=== PATIENT | male | born 1950 | race Caucasian/White ===

== ENCOUNTER 2017-03-19 10:50 | Emergency (ER) | payer BC, OTHER ==
--- NOTE | 2017-03-19 11:04 | PDOC ---
History of Present Illness - General Chief Complaint: Pain, Acute Stated Complaint: RIGHT RIB PAIN WITH BRUISING TO RIGHT BACK & ABD Time Seen by Provider: 03/19/17 11:01 - History of Present Illness Initial Comments: 03/21/17 08:07 Chief complaint: Pain right ribs History of present illness: Patient was playing tennis several days ago, collided with a pole, struck his right mid back. Since then, pain in the right lower posterior ribs, worse with inspiration. He has a small bruise on his right upper abdomen as well, but this was present before his injury. He is unsure of the etiology of this bruise Review of systems: Denies pain or injury to the head neck abdomen pelvis spine or extremities. Denies loss of consciousness. Denies any visual or focal neurologic symptoms, lightheadedness, dizziness, unsteadiness of gait. Past medical history: Patient states that he had one episode of atrial fibrillation approximately 25 years ago, was started on warfarin at that time, and although he has had no further episodes he is maintained on the warfarin by his physician. He is remiss about having his INR checked, which has not been done for "a long time" Elevated cholesterol. IBS with constipation. GERD. Sleep disorder. I blood pressure. Medications: Verapamil, atorvastatin, lamotrigine, Amatiza, Senokot, trazodone, warfarin, Protonix, and oxycodone. Social history: No tobacco alcohol or nonprescription drugs. Stable home and family. Active, plays tennis, and cares for self Family history: Reviewed and noncontributory Physical exam: Alert and oriented 3, well-developed well-nourished, no acute distress, cheerful and cooperative. Afebrile, vital signs normal Head atraumatic. PERRLA, fundi benign, ENT clear Neck supple without bruit mass or nodes. No tenderness or deformity of the cervical spine. Full range of motion without pain Chest clear to P&A. Full breath sounds throughout bilaterally. Mild splinting with deep inspiration due to pain in the right lower posterior rib cage. There is a large ecchymosis in this area without deformity or crepitus to palpation. CV S1 and S2 normal without murmur rub or gallop pulses full and symmetric no JVD or edema. Rate is regular Abdomen nondistended. Bowel sounds normal. Soft without masses tenderness organomegaly. There is a small 2 cm ecchymosis without swelling or induration over the right upper abdomen. No pelvic or spine deformity or point tenderness Neurological C2 to 12 intact. Strength is symmetric. No focal motor or sensory deficits. Gait stable and unimpaired. There is some difficulty arising from a lying position due to pain in the rib cage Impression: Chest contusion, rule out fracture of the ribs, rule out pulmonary contusion Plan: X-ray of the chest and abdomen, CBC, chemistries, urinalysis, and INR. Further treatment depending on results Past History - Past Medical History Allergies/Adverse Reactions: Allergies Allergy/AdvReac Type Severity Reaction Status Date / Time No Known Allergies Allergy Verified 03/19/17 11:02 Home Medications: Ambulatory Orders Pantoprazole Sodium [Protonix] 40 mg PO DAILY 12/14/12 Verapamil HCl [Verapamil Sr] 120 mg PO DAILY 12/14/12 Warfarin Na [Coumadin -] 12.5 mg PO DAILY 12/14/12 Alprazolam [Xanax] 1 mg PO QID PRN 03/19/17 Atorvastatin Ca [Lipitor] 20 mg PO HS 03/19/17 Lamotrigine 100 mg PO BID 03/19/17 Lubiprostone [Amitiza] 24 mcg PO BID 03/19/17 Sennosides [Senokot] 8.6 mg PO DAILY 03/19/17 Tramadol HCl 50 mg PO QID PRN #20 tablet MDD 4 03/19/17 Trazodone HCl 50 mg PO HS 03/19/17 Cardiac Disorders: Yes (A-FIB on Coumadin for 20years) - Psycho/Social/Smoking Cessation Hx Anxiety: No Suicidal Ideation: No Smoking Status: No Smoking History: Never smoked Number of Cigarettes Smoked Daily: 0 ED Treatment Course - LABORATORY CBC & Chemistry Diagram: 03/19/17 11:54 03/19/17 12:28 Medical Decision Making - Medical Decision Making 03/19/17 12:45 CBC reveals a normal white count, H&H, and platelets Chemistries show a potassium of 7.8, but blood is grossly hemolyzed. Repeat specimen sent for potassium and INR. Chest x-ray shows no active pulmonary disease and no definite rib fractures. The abdominal flat and upright are normal, with no evidence of free air or fluid. 03/19/17 13:09 Repeat Potassium is 4.0. 03/19/17 13:10 INR is 6.58 Patient and his were instructed to stop warfarin (Coumadin) until further evaluation in 2 days by his primary physician. Also instructed to return to the emergency room if there is any sign of bleeding, for example, in the stool, urine, gums, or the vomiting of blood. Patient is ambulatory and with pain improved upon discharge with his family to follow-up closely as directed. 03/19/17 13:23 Urinalysis is clear, no blood. 03/21/17 08:19 *DC/Admit/Observation/Transfer Diagnosis at time of Disposition: Contusion of rib on right side Qualifiers: Encounter type: initial encounter Qualified Code(s): S20.211A - Contusion of right front wall of thorax, initial encounter Warfarin toxicity Qualifiers: Encounter type: initial encounter Injury intent: accidental or unintentional Qualified Code(s): T45.511A - Poisoning by anticoagulants, accidental ( unintentional), initial encounter - Discharge Dispostion Disposition: HOME Condition at time of disposition: Stable Admit: No - Prescriptions Prescriptions: Tramadol HCl 50 mg PO QID PRN #20 tablet MDD 4 PRN Reason: Pain - Patient Instructions Printed Discharge Instructions: DI for Rib Contusion, DI for Warfarin Therapy Additional Instructions: Stopped taking warfarin (Coumadin) immediately until you see your doctor in 2-3 days for further monitoring and adjustment of dosage Return to the ER if there is any sign of bleeding, especially if there is blood in the urine, stool, bleeding gums, or increasing abdominal girth. Also if there is chest pain, shortness of breath, lightheadedness, or dizziness.
[2017-03-19 11:22] VITALS: TEMP 97.4; BMI 23.7
[2017-03-19 12:02] LABS: MCH 31.5 pg (25.7-33.7); MCHC 33.8 g/dl (32.0-35.9); MEAN CELL VOLUME 93.3 fl (80-96); MEAN PLT VOLUME 8.9 fl (7.5-11.1); PLATELET COUNT 174 K/MM3 (134-434); RDW 12.9 % (11.9-15.9); WHITE BLOOD COUNT 7.6 K/mm3 (4.0-10.8)
[2017-03-19 12:17] LABS: ALBUMIN 3.8 g/dl (3.5-5.0); ALK PHOS 49 U/L (32-92); ANION GAP 4 (8-16); CALCIUM 8.6 mg/dl (8.4-10.2); CO2 22 mmol/L (22-28); CREATININE 1.2 mg/dl (0.6-1.3); GLUCOSE,RANDOM 96 mg/dl (74-106); SGOT/AST 62 U/L (10-42); SGPT/ALT 20 U/L (10-40); TOT PROT 5.8 g/dl (6.4-8.3)
[2017-03-19] MEDS ORDERED: KETOROLAC TROMETHAMINE 30 MG/1 ML VIAL IVPUSH ONE (12:41)
[2017-03-19] MEDS ORDERED: KETOROLAC TROMETHAMINE 30 MG/1 ML VIAL ONE (12:48)
[2017-03-19 12:51] LABS: ALBUMIN 3.6 g/dl (3.5-5.0); ALK PHOS 49 U/L (32-92); BILIRUBIN,TOTAL 0.3 mg/dl (0.2-1.0); CREATININE 0.9 mg/dl (0.6-1.3); GLUCOSE,RANDOM 103 mg/dl (74-106); SGOT/AST 36 U/L (10-42); SGPT/ALT 31 U/L (10-40); TOT PROT 5.8 g/dl (6.4-8.3)
[2017-03-19 12:59] LABS: ANION GAP 7 (8-16); CO2 22 mmol/L (22-28)
[2017-03-19 13:00] LABS: CALCIUM 8.6 mg/dl (8.4-10.2)
[2017-03-19 13:06] LABS: INR 6.58 (0.82-1.09)
[2017-03-19 13:11] LABS: URINE APPEARANCE Clear; URINE BILIRUBIN 1+ (NEGATIVE); URINE BLOOD Negative (NEGATIVE); URINE GLUCOSE (UA) Negative (NEGATIVE); URINE KETONE Negative (NEGATIVE); URINE LEUK ESTERASE Negative (NEGATIVE); URINE NITRITE Negative (NEGATIVE); URINE UROBILINOGEN 1.0 E.U/dl (0.2-1.0)
[2017-03-19 13:12] LABS: URINE COLOR YELLOW
[2017-03-19 13:13] LABS: URINE PROTEIN TRACE (NEGATIVE)
[2017-03-19 13:40] VITALS: BP 130/90; PULSE 70
== END 2017-03-19 13:48 | disposition home or self-care (01) ==
LOC: FER 10:50
PROC: 3E0333Z Introduction of Anti-inflammatory into Peripheral Vein, Percutaneous Approach (ICD-10-PCS; principal; 2017-03-19)
DX: S20.211A Contusion of right front wall of thorax, initial encounter (principal); W22.8XXA Striking against or struck by other objects, initial encounter; Y93.69 Activity, other involving other sports and athletics played as a team or group; Y92.312 Tennis court as the place of occurrence of the external cause; I48.91 Unspecified atrial fibrillation; Z79.01 Long term (current) use of anticoagulants
CPT/HCPCS: 36415; 71101-TC-RT; 74020-TC; 80053; 81003; 85025; 85610; 99284-25